=== PATIENT | female | born 1945 | race Caucasian/White ===

== ENCOUNTER 2017-06-05 11:26 | Emergency (ER) | payer MEDICARE, OTHER ==
[2017-06-05 11:39] VITALS: BP 149/89; PULSE 92; RESP 20; TEMP 99; O2SAT 99
--- NOTE | 2017-06-05 12:34 | ED PDOC ---
HPI: Dental Pain/Injury Time Seen by Provider: 06/05/17 12:11 Chief Complaint (Nursing): Dental Pain Chief Complaint (Provider): Right lower jaw pain History Per: Patient History/Exam Limitations: no limitations Onset/Duration Of Symptoms: Days Current Symptoms Are (Timing): Still Present Quality: "Pain" Additional History Per: Patient Additional Complaint(s): The patient is a 71yo female, presents to the ED for evaluation of right lower jaw pain for the past 3 days. Patient report she has been taking Excedrin for the pain with no relief; she additionally states she is concerned about an abscess. Patient states she has not had any recent dental work and denies any fever, chills, ear pain, sore throat. She offers no additional medical complaints. Past Medical History Reviewed: Historical Data, Nursing Documentation, Vital Signs Vital Signs: Last Vital Signs Temp 99 F 06/05/17 11:36 Pulse 92 H 06/05/17 11:36 Resp 20 06/05/17 11:36 BP 149/89 06/05/17 11:36 Pulse Ox 99 06/05/17 11:36 - Medical History PMH: HTN, Hypercholesterolemia - Surgical History Surgical History: Appendectomy, Cholecystectomy - Family History Family History: States: No Known Family Hx - Home Medications Home Medications: Ambulatory Orders Medication Instructions Recorded Acyclovir 800 mg PO 5XD 10 Days 09/03/15 Mineral Oil/White Petrolatum 1 appl OD HS #1 tube 09/03/15 [Artificial Tears] Polyvinyl Alcohol [Artificial 2 drop OD Q6 #1 stephany 09/03/15 Tears 30 ml] Prednisone 20 mg PO DAILY 10 Days 09/03/15 Amoxicillin [Amoxil 500 mg Cap] 500 mg PO BID #14 cap 06/05/17 Ketorolac Tromethamine [Toradol] 10 mg PO Q4 #12 tab 06/05/17 - Allergies Allergies/Adverse Reactions: Allergies Allergy/AdvReac Type Severity Reaction Status Date / Time No Known Allergies Allergy Unverified 11/12/14 16:43 Review of Systems Constitutional: Negative for: Fever, Chills ENT: Positive for: Other (right lower jaw pain). Negative for: Ear Pain, Throat Pain Physical Exam - Physical Exam Appears: Positive for: Non-toxic Head Exam: Positive for: ATRAUMATIC Skin: Positive for: Normal Color Eye Exam: Positive for: Normal appearance ENT: Positive for: Pharynx Is (normal), Other (right lower jaw with a lesion with white tip; surrounding erythema, mild fluctuance and tenderness noted. Normal teeth noted. Mild gum disease noted as well. Normal tongue. Normal uvula) . Negative for: Pharyngeal Erythema Neck: Positive for: Supple Cardiovascular/Chest: Positive for: Regular Rate, Rhythm Respiratory: Positive for: Normal Breath Sounds Neurologic/Psych: Positive for: Alert, Oriented. Negative for: Motor/Sensory Deficits - ECG O2 Sat by Pulse Oximetry: 99 (RA) Pulse Ox Interpretation: Normal Medical Decision Making Medical Decision Making: Time: 1210 Impression: Dental pain Plan: -- Patient informed on the need for follow up with dentist regarding lesion in her mouth. Patient to be discharged home with Amoxicillin, Toradol and instructions for follow up. Scribe Attestation: Documented by Yesenia Hinson acting as a scribe for EDUARDO Garcia Provider Attestation: All medical record entries made by the Scribe were at my direction and personally dictated by me. I have reviewed the chart and agree that the record accurately reflects my personal performance of the history, physical exam, medical decision making, and the department course for this patient. I have also personally directed, reviewed, and agree with the discharge instructions and disposition. Disposition - Clinical Impression Clinical Impression: Dental abscess - Disposition Disposition: Routine/Home Disposition Time: 12:34 Condition: STABLE Prescriptions: Amoxicillin [Amoxil 500 mg Cap] 500 mg PO BID #14 cap Ketorolac Tromethamine [Toradol] 10 mg PO Q4 #12 tab Instructions: Dental Abscess (ED) Forms: [employer] (Arabic)
== END 2017-06-05 12:48 | disposition home or self-care (01) ==
LOC: H.ER 11:26
DX: K04.7 Periapical abscess without sinus (principal)